=== PATIENT | male | born 1970 | race Two or more races ===

== ENCOUNTER 2020-08-03 22:03 | Emergency (ER) | payer MEDICAID ==
[~2020-08-03] VITALS: Ht 165.1 cm; Wt 75.3 kg
[2020-08-03 22:09] VITALS: Ht 165.1 cm; Wt 75.3 kg
[2020-08-04 00:13] LABS: UA SPECIFIC GRAVITY 1.015 (1.005-1.035); microscopic required? YES; urine erythrocyte 3+ (NEGATIVE)
[2020-08-04 00:43] LABS: BASOPHIL % 0.7 % (0-2); PLATELET COUNT 136 x10^3mcL (130-400); RED CELL DISTRIBUTION WIDTH 12.4 % (11.5-14.5)
[2020-08-04 01:16] LABS: CHLORIDE SERUM 99 mmol/L (98-107); POTASSIUM SERUM 3.6 mmol/L (3.5-5.1); SODIUM SERUM 136 mmol/L (136-145)
[2020-08-04 01:28] LABS: CREATININE SERUM 0.8 mg/dL (0.7-1.3); GFR1 > 60 mL/min
[2020-08-04 01:29] LABS: CALCIUM 8.6 mg/dL (8.5-10.1); CARBON DIOXIDE 21.3 mmol/L (21-32); GLUCOSE SERUM 407 mg/dL (74-106)
[2020-08-04 02:42] VITALS: BP 192/115
== END 2020-08-04 02:42 | disposition home or self-care (01) ==
LOC: ED 22:03
PROVIDERS: Emergency Medicine
DX: S31.21XA Laceration without foreign body of penis, initial encounter (principal); X58.XXXA Exposure to other specified factors, initial encounter; Y93.89 Activity, other specified; Y92.89 Other specified places as the place of occurrence of the external cause; Y99.8 Other external cause status
CPT/HCPCS: 90715; J2001; J2270

== ENCOUNTER 2020-08-07 10:14 | Emergency (ER) | payer MEDICAID ==
[~2020-08-07] VITALS: Ht 160 cm; Wt 73.9 kg
[2020-08-07 10:37] VITALS: Ht 160 cm; Wt 73.9 kg
[2020-08-07 11:46] VITALS: BP 131/78
== END 2020-08-07 11:46 | disposition home or self-care (01) ==
LOC: ED 10:14
DX: S31.21XD Laceration without foreign body of penis, subsequent encounter (principal); X58.XXXD Exposure to other specified factors, subsequent encounter

== ENCOUNTER 2020-08-10 09:33 | Emergency (ER) | payer MEDICAID ==
[~2020-08-10] VITALS: Ht 167.6 cm; Wt 73.9 kg
[2020-08-10 09:38] VITALS: Ht 167.6 cm; Wt 73.9 kg
[2020-08-10 10:42] VITALS: BP 186/106
== END 2020-08-10 10:42 | disposition home or self-care (01) ==
LOC: ED 09:33
DX: S31.21XD Laceration without foreign body of penis, subsequent encounter (principal); I10 Essential (primary) hypertension; E11.9 Type 2 diabetes mellitus without complications; X58.XXXD Exposure to other specified factors, subsequent encounter

== ENCOUNTER 2020-08-14 09:52 | Emergency (ER) | payer MEDICAID ==
[~2020-08-14] VITALS: Ht 162.6 cm; Wt 73.9 kg
[2020-08-14 10:03] VITALS: BP 215/120; Ht 162.6 cm; Wt 73.9 kg
== END 2020-08-14 10:50 | disposition home or self-care (01) ==
LOC: ED 09:52
DX: S31.21XD Laceration without foreign body of penis, subsequent encounter (principal); I10 Essential (primary) hypertension; E11.9 Type 2 diabetes mellitus without complications; W23.0XXD Caught, crushed, jammed, or pinched between moving objects, subsequent encounter